=== PATIENT | female | born 1970 | race Caucasian/White ===

== ENCOUNTER 2017-10-18 13:15 | Emergency (ER) | payer OTHER ==
[2017-10-18] MEDS ORDERED: Ibuprofen 800 MG TAB ONE (13:56)
[2017-10-18] MEDS ORDERED: HYDROcodone/Acetaminophen 5/325 mg Tablet ONE (13:56)
--- NOTE | 2017-10-18 15:49 | RAD ---
3 VIEWS LEFT ANKLE: Date: 10/18/17 HISTORY: Left ankle pain. FINDINGS: The ankle mortise is congruent. There is no evidence of a fracture or dislocation. Posterior and plan tar calcaneal enthesophytes are identified. IMPRESSION: No acute osseous abnormality. POS: [facility]
== END 2017-10-18 14:24 | disposition home or self-care (01) ==
LOC: MADERS 13:15
DX: S93.402A Sprain of unspecified ligament of left ankle, initial encounter (principal); X50.1XXA Overexertion from prolonged static or awkward postures, initial encounter

== ENCOUNTER 2017-11-03 15:22 | Outpatient (CLI) | payer OTHER ==
--- NOTE | 2017-11-03 15:53 | RAD ---
LEFT ANKLE THREE VIEWS: History: Injury with pain. FINDINGS: Mild soft tissue swelling. No fracture or osseous abnormality identified. IMPRESSION: No acute osseous abnormality. POS: [facility]
== END 2017-11-03 15:23 | disposition home or self-care (01) ==
LOC: MADRAD 15:22
PROVIDERS: ATTEND Family Medicine
DX: S93.492A Sprain of other ligament of left ankle, initial encounter (principal)